=== PATIENT | male | born 1990 | race Caucasian/White ===

== ENCOUNTER 2023-09-17 15:57 | Outpatient (AMB) | payer OTHER, SELFPAY ==
--- NOTE | 2023-09-17 16:03 | MHC.OFFWIV ---
Intake Vital Signs 09/17/23 16:13 Height 6 ft 1 in Weight 194 lb 4 oz BMI 25.6 BP 102/68 Blood Pressure Location Rt brachial Position Sitting Pulse 59 Pulse Source Pulse Oximeter Pulse Oximetry (%) 98 Oxygen Delivery Method Room Air Intake Visit Reasons: [employer], neck/ shulder pain (lobby) Intake Note: Pt is here today for neck and Lt shoulder pain, No injury mentioned noticed pain 2 days ago. Patient Tobacco Use Status: Never used Tobacco Allergies No Known Allergies Allergy (Verified 09/17/23 16:14) Do you need a note to return to daycare/school/sports/work: No HPI HPI Comments History of Present Illness Details Patient presents to the walk-in today for sick visit Complaining of left shoulder pain for last 2 days Pain worse with behind the back reach and overhead reach Denies injury or trauma Using THC for the pain PFSH Social History Patient Tobacco Use Status: Never used Tobacco Review of Systems Const All systems reviewed & are unremarkable except as noted in HPI and below Physical Exam Vital Signs: Last Vital Signs Pulse 59 09/17/23 16:13 BP 102/68 09/17/23 16:13 Pulse Ox 98 09/17/23 16:13 Oxygen Delivery Method Room Air 09/17/23 16:13 BMI result Body Mass Index 25.6 General: awake, alert, oriented. Answers questions appropriately. Fully engaged in examination. Skin: warm, dry, intact HEENT: Normocephalic. Hearing intact. Cardiac: External chest normal in appearance. Respiratory: No cough, audible wheezing or stridor. Abdomen: without gross distension. MS: No obvious swelling or deformities. Left shoulder tender to palpation over glenohumeral joint. Pain with overhead reach and behind the back reach Neurological: Oriented to person, place, time and situation. Thought process intact. No gait abnormalities appreciated. Psychiatric: Appropriate mood and affect. Good judgment and insight. Assessment & Plan Assessment & Plan (1) Left shoulder pain: Code(s): M25.512 - Pain in left shoulder Plan X-ray of the shoulder ordered, x-ray not available at this time patient will return tomorrow to complete. Methocarbamol 500 mg p.o. t.i.d.. Patient advised on cautions for use Diclofenac 50 mg p.o. b.i.d.. Take with food, do not take with any other nonsteroidal anti-inflammatory medications Referral placed for Orthopedics Follow up with PCP or return here for any new or worsening symptoms Orders: Orders XR shoulder LT min 2V Today M25.512 - Pain in left shoulder Referrals Orthopedics Referral M25.512 - Pain in left shoulder Medications: New methocarbamol No driving while taking this medication 500 mg PO TID 20 tabs 0RF diclofenac potassium 50 mg PO BID 30 tabs 0RF Coding Level of Care Code Est Pt Level 3 (65728) Diagnoses Left shoulder pain M25.512
[2023-09-17 16:13] VITALS: BP 102/68; PULSE 59; O2SAT 98; BMI 25.6
== END 2023-09-17 16:43 | disposition home or self-care (01) ==
PROVIDERS: Visit Provider Registered Nurse Emergency
DX: M25.512 Pain in left shoulder (principal)
CPT/HCPCS: 99213

== ENCOUNTER 2023-09-18 14:00 | Outpatient (REF) | payer OTHER, SELFPAY ==
--- NOTE | ~2023-09-18 | XR_ITS ---
EXAMINATION: XR SHOULDER, LEFT CLINICAL INFORMATION: Left shoulder pain COMPARISON: None available. TECHNIQUE: AP external rotation, Grashey, scapular Y, and axillary views of the left shoulder. FINDINGS: No fracture or dislocation. Alignment and articulations maintained. Visualized ribs and lung are unremarkable. XR/XR shoulder LT min 2V IMPRESSION: No acute bony pathology.
== END 2023-09-18 14:01 | disposition home or self-care (01) ==
LOC: HO.HMGCX 14:00
PROVIDERS: Visit Provider Registered Nurse Emergency
DX: M25.512 Pain in left shoulder (principal)
CPT/HCPCS: 73030